=== PATIENT | female | born 1995 | race Caucasian/White ===

== ENCOUNTER 2016-05-05 21:50 | Emergency (ER) | payer OTHER ==
[2016-05-05 21:59] VITALS: BP 125/71; PULSE 90; BMI 23.4
--- NOTE | 2016-05-05 22:40 | PDOC ---
History of Present Illness - General Chief Complaint: Back Pain Stated Complaint: BACK PAIN Time Seen by Provider: 05/05/16 22:10 History Source: Patient Exam Limitations: No Limitations - History of Present Illness Initial Comments: 05/05/16 23:36 Chief complaint: Lower back pain. 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 No dysuria, incontinence, numbness or weakness or saddle anesthesia. No fever. GENERAL/CONSTITUTIONAL: No fever, weakness. dizziness HEAD, EYES, EARS, NOSE AND THROAT: No change in vision. No ear pain or discharge. No sore throat. CARDIOVASCULAR: No chest pain RESPIRATORY: No shortness of breath or cough GASTROINTESTINAL: No pain, nausea, vomiting, diarrhea or constipation GENITOURINARY: No dysuria MUSCULOSKELETAL: No neck or back pain SKIN: No rash NEUROLOGIC: No headache, vertigo, loss of consciousness, or loss of sensation. GENERAL: The patient is awake, alert, and fully oriented, in no acute distress. HEAD: Normal with no signs of trauma. EYES: Pupils equal, round and reactive to light, sclera anicteric, conjunctiva clear. ENT: pharynx: no erythema, no exudate, uvula midline NECK: supple CHEST: clear, nontender, rr ABD: soft, nontender Back with tenderness across the lower back, no CVAT Pain with bending or moving EXTREMITIES: Normal range of motion, no edema. Neurovascular intact, strength 5 out of 5 upper and lower extremities bilaterally NEUROLOGICAL: Normal speech, normal gait. SKIN: Warm, Dry Past History - Past Medical History Allergies/Adverse Reactions: Allergies Allergy/AdvReac Type Severity Reaction Status Date / Time No Known Allergies Allergy Verified 05/05/16 21:56 Home Medications: Ambulatory Orders Sulfamethoxazole/Trimethoprim [Bactrim Ds Tablet] 1 each PO BID #5 tablet Other medical history: denies - Psycho/Social/Smoking Cessation Hx Suicidal Ideation: No Smoking History: Unknown if ever smoked *Physical Exam - Vital Signs Last Vital Signs Temp Pulse Resp BP Pulse Ox 90 18 125/71 99 05/05/16 21:57 05/05/16 21:57 05/05/16 21:57 05/05/16 21:57 Medical Decision Making - Medical Decision Making 05/05/16 23:38 Patient with what appears to be 4 days of worsening lower back, musculoskeletal pain, we'll check for and check a UA for infection although no dysuria test is negative, UA shows 2+ leuks, small amount of white cells, will treat. Patient was given Toradol for pain, will reassess 05/05/16 23:45 pt is pain free *DC/Admit/Observation/Transfer Diagnosis at time of Disposition: Back pain Qualifiers: Back pain location: low back pain Chronicity: unspecified Back pain laterality : unspecified Sciatica presence: without sciatica Qualified Code(s): M54.5 - Low back pain UTI (urinary tract infection) Qualifiers: Urinary tract infection type: acute cystitis Hematuria presence: without hematuria Qualified Code(s): N30.00 - Acute cystitis without hematuria - Discharge Dispostion Disposition: HOME Condition at time of disposition: Stable Admit: No - Prescriptions Prescriptions: Sulfamethoxazole/Trimethoprim [Bactrim Ds Tablet] 1 each PO BID #5 tablet - Patient Instructions Printed Discharge Instructions: Low Back Pain, DI for Urinary Tract Infection ( UTI) Additional Instructions: Take the Bactrim one tablet every 12 hours starting tomorrow morning You can take Motrin 600 mg every 6 hours for the pain Return to the ER if fever, vomiting or getting sicker Otherwise follow-up with your doctor this week
[2016-05-05 22:49] LABS: URINE APPEARANCE CLEAR; URINE BILIRUBIN NEGATIVE (NEGATIVE); URINE BLOOD NEGATIVE (NEGATIVE); URINE COLOR LTYELLOW; URINE GLUCOSE (UA) NEGATIVE (NEGATIVE); URINE KETONE NEGATIVE (NEGATIVE); URINE NITRITE NEGATIVE (NEGATIVE); URINE PROTEIN NEGATIVE (NEGATIVE); URINE UROBILINOGEN NEGATIVE E.U./dl (0.2-1.0)
[2016-05-05] MEDS ORDERED: KETOROLAC TROMETHAMINE 60 MG/2 ML VIAL IM ONE (22:57)
[2016-05-05] MEDS ORDERED: KETOROLAC TROMETHAMINE 60 MG/2 ML VIAL ONE (22:59)
[2016-05-05 23:07] LABS: URINE BACTERIA RARE /hpf (NONE SEEN); URINE LEUK ESTERASE 2+ (NEGATIVE); URINE MUCUS RARE; URINE RBC 2 /hpf (0-3); URINE WBC 12 /hpf (3-5)
[2016-05-05 23:40] VITALS: TEMP 98.8
[2016-05-05] MEDS ORDERED: SULFAMETHOXAZOLE/TRIMETHOPRIM 800MG/160MG D.S. TABLET PO ONE (23:43)
[2016-05-05] MEDS ORDERED: SULFAMETHOXAZOLE/TRIMETHOPRIM 800MG/160MG D.S. TABLET ONE (23:47)
== END 2016-05-05 23:55 | disposition home or self-care (01) ==
LOC: JERFT 21:50
PROC: 3E0233Z Introduction of Anti-inflammatory into Muscle, Percutaneous Approach (ICD-10-PCS; principal; 2016-05-05)
DX: N30.00 Acute cystitis without hematuria (principal); M54.5 Low back pain
CPT/HCPCS: 81003; 81015; 84703; 87086; 87186; 96372; 99281-25

== ENCOUNTER 2019-12-19 17:11 | Emergency (ER) | payer OTHER ==
--- NOTE | 2019-12-19 17:15 | PDOC ---
Rapid Medical Evaluation Time Seen by Provider: 12/19/19 17:14 Medical Evaluation: Allergies Allergy/AdvReac Type Severity Reaction Status Date / Time No Known Allergies Allergy Verified 05/05/16 21:56 12/19/19 17:14 24 year old female s/p panic attack now refusing to speak accompanied by sister who states they were in the car when her sister began to hyper ventilate PE: Hyperventilating CTA RRR Plan Differed to ED provider
[2019-12-19 17:23] VITALS: TEMP 98.1; BMI 31.2
--- OUTSIDE RECORDS SUMMARY | 2019-12-19 17:41 | XMS ---
:1995 Author Organization [facility] Support Name Relationship Address Phone [employer] [place] [address] GARMENTO MOTHER [address] [place] [address] SHOSHANA'S Unavailable [address] [place] [address] GARMENIA MOTHER [address] [place] [address] DELVIN AUNT [address] [facility] [address] garmenia Unavailable Unavailable Unavailable Re-disclosure Warning The records that you are about to access may contain information from federally- assisted alcohol or drug abuse programs. If such information is present, then the following federally mandated warning applies: This information has been disclosed to you from records protected by federal confidentiality rules (42 CFR part 2). The federal rules prohibit you from making any further disclosure of this information unless further disclosure is expressly permitted by the written consent of the person to whom it pertains or as otherwise permitted by 42 CFR part 2. A general authorization for the release of medical or other information is NOT sufficient for this purpose. The Federal rules restrict any use of the information to criminally investigate or prosecute any alcohol or drug abuse patient.The records that you are about to access may contain highly sensitive health information, the redisclosure of which is protected by Article 27-F of the [facility] Public Health law. If you continue you may haveaccess to information: Regarding HIV / AIDS; Provided by facilities licensed or operated by the [facility] Office of Mental Health; or Provided by the [facility] Office for People With Developmental Disabilities. If such information is present, then the following [facility] mandated warning applies: This information has been disclosed to you from confidential records which are protected by state law. State law prohibits you from making any further disclosure of this information without the specific written consent of the person to whom it pertains, or as otherwise permitted by law. Any unauthorized further disclosure in violation of state law may result in a fine or skilled nursing sentence or both. A general authorization for the release of medical or other information is NOT sufficient authorization for further disclosure. Encounters Encounter Providers Location Date Indications Data Source(s ) Outpatient [facility] 11/29/2018 eCW3 ([facility] 12:00:00 AM Health Care) EDT - 11/29/2018 12:00:00 AM EDT Medications Medication Brand Start Product Dose Route Administrative Pharmacy [facility] Indications Reaction Description Data Name Date Form Instructions Instructions Source(s) medroxyprog DEPO-P 05/17/ suspend DEPO-P ROVERA eCW3 esterone ROVERA 2019 ed 150 mg/ml ([place] son acetate 150 150 12:00: [place] MG/ML mg/ml 00 AM Health Injectable EDT Care) Suspension [Depo-Prove ra] DEPO-PUBLIC POLICY COORDINATOR A 150 mg/ml medroxyprog DEPO-P 05/15/ suspend DEPO-P ROVERA eCW3 esterone ROVERA 2019 ed 150 mg/ml ([facility] son acetate 150 150 12:00: [place] MG/ML mg/ml 00 AM Health Injectable EDT Care) Suspension [Depo-Prove ra] DEPO-PUBLIC POLICY COORDINATOR A 150 mg/ml medroxyprog DEPO-P 02/14/ suspend DEPO-P ROVERA eCW3 esterone ROVERA 2018 ed 150 mg/ml ([facility] son acetate 150 150 12:00: [place] MG/ML mg/ml 00 AM Health Injectable EST Care) Suspension [Depo-Prove ra] DEPO-PUBLIC POLICY COORDINATOR A 150 mg/ml Insurance Providers Payer name Policy type Policy ID Covered Covered libertarian's Policy P kya / Coverage libertarian ID relationship to Garcia Inf ormation type garcia AFFINITY [id number] SP [id number] ESSENTIAL PLAN 3 4 Problems, Conditions, and Diagnoses Code Display Name Description Problem Type Effective Dates Data Source(s) U07.1 COVID-19 virus COVID-19 virus Problem 07/04/2019 eCW3 ( [place] detected detected 12:00:00 AM [facility]) Surgeries/Procedures Procedure Description Date Indications Data Source(s) INJ DEPOPROVERA 150 mg 11/29/2018 eCW3 ([place] 12:00:00 AM [facility]) Results ID Date Data Source [id number] 07/18/2019 12:00:00 AM EDT [facility] Name Value Range Interpretation Code Description Data Mel rce(s) Supporting Document(s ) 2018-nCoV [facility] RNA XXX JONY+probe- Imp This lab was ordered by [facility] and reported by [employer] ID Date Data Source [id number] 07/01/2019 12:00:00 AM EDT [facility] Name Value Range Interpretation Code Description Data Mel rce(s) Supporting Document(s ) nCoV [facility] RNA XXX JONY+probe- Imp This lab was ordered by [facility] and reported by [employer] Procedure Social History Code Duration Value Status Description Data Source(s ) Smoking 09/05/2019 12:00:00 Never Smoker completed Never Smoker e CW3 ([facility]) Smoking 07/19/2019 12:00:00 Never Smoker completed Never Smoker e CW3 ([facility]) Smoking 11/29/2018 12:00:00 Never Smoker completed Never Smoker e CW3 ([facility]) Vital Signs ID Date Data Source UNK Name Value Range Interpretation Code Description Data Source(s) Diastolic blood 72 mm[Hg] 72 mm[Hg] eCW3 ([facility]) Systolic blood 109 mm[Hg] 109 mm[Hg] eCW3 ([facility]) Body temperature 98.2 [degF] 98.2 [degF] eCW3 ( [facility]) Heart rate 20 /min 20 /min eCW3 ([facility]) Body mass index 29.82 kg/m2 29.82 kg/m2 eCW3 ([facility] (BMI) [Ratio] [facility]) Body weight 167 [lb_av] 167 [lb_av] eCW3 ([facility]) Body height 62.75 [in_i] 62.75 [in_i] eCW3 ([facility])
--- NOTE | 2019-12-19 20:16 | PDOC ---
History of Present Illness - General Chief Complaint: Chest Pain Stated Complaint: ANXIETY Time Seen by Provider: 12/19/19 17:14 History Source: Patient - History of Present Illness Initial Comments: 12/19/19 23:32 24-year-old female complaining of midsternal chest pain and shortness of breath for the last 2 weeks. It is worse with activity patient reports that she has had similar episode when she was in [facility] where she was given "pump"no further testing was done at that time. Patient is currently on OCP "Depo shot" Denies fever/chills, nausea, vomiting, abdominal pain, diarrhea, headache. This encounter was done with [employer] educational sign language interpreter 12/19/19 23:34 Denies Covid exposure or recent travel. Past History - Medical History Allergies/Adverse Reactions: Allergies Allergy/AdvReac Type Severity Reaction Status Date / Time No Known Allergies Allergy Verified 12/19/19 17:17 Home Medications: Ambulatory Orders Sulfamethoxazole/Trimethoprim [Bactrim Ds Tablet] 1 each PO BID #5 tablet 05/05/16 Albuterol Sulfate Inhaler - [Ventolin HFA Inhaler -] 2 inh PO Q4H PRN #1 inh 12/20/19 Cephalexin Monohydrate [Keflex -] 500 mg PO BID #20 capsule 12/20/19 COPD: No - Reproductive History Is Patient Now?: No - Psycho-Social/Smoking History Smoking History: Never smoked Have you smoked in the past 12 months: No - Substance Abuse Hx (Audit-C & DAST Scrn) How often the patient has a drink containing alcohol: Never Score: In Men: 4 or > Positive; In Women: 3 or > Positive: 0 Screen Result (Pos requires Nsg. Audit-10AR): Negative In the last yr the pt used illegal drug/Rx for NonMed reason: No Score: Yes response is considered Positive: 0 Screen Result (Positive result requires Nsg. DAST-10): Negative Review of Systems - Review of Systems Able to Perform ROS?: Yes Is the patient limited Serbian proficient: No Constitutional: No: Symptoms Reported, See HPI, Chills, Diaphoresis, Fever, Loss of Appetite, Malaise, Night Sweats, Weakness, Weight Stable, Unintentional Wgt. Loss, Unexplained wgt Loss, Other Respiratory: Yes: SOB with Exertion Cardiac (ROS): Yes: Chest Pain ABD/GI: No: Symptoms Reported, See HPI, Abdominal Distended, Abd. Pain w/ defecation, Blood Streaked Bowels, Constipated, Diarrhea, Difficulty Swallowing, Nausea, Poor Appetite, Poor Fluid Intake, Rectal Bleeding, Vomiting, Indigestion, Abdominal cramping, Tarry Stools, Other *Physical Exam - Vital Signs Last Vital Signs Temp Pulse Resp BP Pulse Ox 98.1 F 84 18 120/74 98 12/19/19 17:17 12/20/19 01:12 12/19/19 17:17 12/20/19 01:12 12/20/19 01:12 - Physical Exam General Appearance: Yes: Appropriately Dressed Respiratory/Chest: positive: Lungs Clear, Normal Breath Sounds Cardiovascular: positive: Regular Rhythm, Regular Rate. negative: Tachycardia Gastrointestinal/Abdominal: positive: Normal Bowel Sounds, Soft. negative: Tender Musculoskeletal: negative: CVA Tenderness Extremity: positive: Normal Capillary Refill, Normal Inspection, Normal Range of Motion Integumentary: positive: Normal Color, Dry, Warm Neurologic: positive: Fully Oriented, Alert, Normal Mood/Affect ED Treatment Course - LABORATORY CBC & Chemistry Diagram: 12/19/19 21:30 12/19/19 21:30 - ADDITIONAL ORDERS Additional order review: Laboratory Results 12/19/19 12/19/19 12/19/19 22:31 22:00 21:30 D-Dimer 885 H Sodium 137 Potassium 4.2 Chloride 106 Carbon Dioxide 25 Anion Gap 7 L BUN 9.8 Creatinine 0.6 Est GFR (CKD-EPI)AfAm 146.83 Est GFR (CKD-EPI)NonAf 126.68 Random Glucose 77 Calcium 9.4 Total Bilirubin 0.3 AST 97 H ALT 150 H Alkaline Phosphatase 100 Troponin I < 0.02 Total Protein 8.7 H Albumin 4.4 Urine Color Yellow Urine Appearance Turbid Urine pH 7.0 Ur Specific [place] 1.019 Urine Protein Negative Urine Glucose (UA) Negative Urine Ketones Negative Urine Blood Negative Urine Nitrite Positive H Urine Bilirubin Negative Urine Urobilinogen 0.2 Ur Leukocyte Esterase 2+ H Urine WBC (Auto) 354 Urine RBC (Auto) 13 Urine Casts (Auto) 18 U Pathogenic Cast Auto U Epithel Cells (Auto) >36 Urine Bacteria (Auto) >9,000 Urine HCG, Qual Negative 12/19/19 21:30 RBC 4.50 MCV 89.9 MCHC 34.2 RDW 14.3 MPV 9.0 Neutrophils % 55.9 Lymphocytes % 35.6 D Monocytes % 5.7 Eosinophils % 1.7 Basophils % 1.1 - RADIOLOGY Radiology Studies Ordered: Category Date Time Status CHEST CTA [CT] Stat CT Scan 12/19/19 22:16 Taken CHEST PA & LAT [RAD] Stat Radiology 12/19/19 20:16 Taken - Medications Given in the ED: ED Medications Discontinued Medications Generic Name Dose Route Start Last Admin Trade Name Tisha PRN Reason Stop Dose Admin Ketorolac Tromethamine 30 mg 12/20/19 00:42 12/20/19 00:55 Toradol Injection - IVPUSH 12/20/19 00:43 30 mg ONCE ONE Administration Medical Decision Making - Medical Decision Making 12/19/19 23:35 A: chest pain; uti P: labs ekg chest xray UA: + nitrite leuks + d-dimer elevated 12/20/19 00:42 CTA chest : There is no PE or dissection. Heart size is normal. The trachea and bronchi are patent. There is no pleural or pericardial effusion. The lungs are clear. No fractures identified. The upper abdominal structures are normal. Discharge - Discharge Information Problems reviewed: Yes Clinical Impression/Diagnosis: SOB (shortness of breath) on exertion Chest pain Qualifiers: Chest pain type: chest pain on breathing Qualified Code(s): R07.1 - Chest pain on breathing UTI (urinary tract infection) Qualifiers: Urinary tract infection type: acute cystitis Hematuria presence: without hematuria Qualified Code(s): N30.00 - Acute cystitis without hematuria Condition: Stable Disposition: HOME - Additional Discharge Information Prescriptions: Cephalexin Monohydrate [Keflex -] 500 mg PO BID #20 capsule Albuterol Sulfate Inhaler - [Ventolin HFA Inhaler -] 2 inh PO Q4H PRN #1 inh PRN Reason: Shortness Of Breath - Follow up/Referral Referrals: Aleida Lowe CNM [Primary Care Provider] - - Patient Discharge Instructions Patient Printed Discharge Instructions: DI for Chest Pain Additional Instructions: Please follow-up with your primary care doctor. Return to the emergency room for any worsening symptoms - Post Discharge Activity Work/Back to School Note: Back to Work
[2019-12-19 21:52] LABS: BASO % 1.1 % (0-2.0); EOS % 1.7 % (0-4.5); HEMATOCRIT 40.4 % (32.4-45.2); HEMOGLOBIN 13.8 GM/dL (10.7-15.3); LYMPH % 35.6 % (8-40); MCH 30.8 pg (25.7-33.7); MCHC 34.2 g/dl (32.0-36.0); MEAN CELL VOLUME 89.9 fl (80-96); MONO % 5.7 % (3.8-10.2); NEUT % 55.9 % (42.8-82.8); PLATELET COUNT 408 K/MM3 (134-434); RDW 14.3 % (11.6-15.6); WHITE BLOOD COUNT 8.5 K/mm3 (4.0-10.0)
[2019-12-19 22:38] LABS: ALBUMIN 4.4 g/dl (3.4-5.0); ALK PHOS 100 U/L (45-117); ANION GAP 7 MMOL/L (8-16); BILIRUBIN,TOTAL 0.3 mg/dL (0.2-1); BLOOD UREA NITROGEN 9.8 mg/dL (7-18); CALCIUM 9.4 mg/dL (8.5-10.1); CHLORIDE 106 mmol/L (98-107); CO2 25 mmol/L (21-32); CREATININE 0.6 mg/dL (0.55-1.3); GLUCOSE,RANDOM 77 mg/dL (74-106); POTASSIUM 4.2 mmol/L (3.5-5.1); SGOT/AST 97 U/L (15-37); SGPT/ALT 150 U/L (13-61); SODIUM 137 mmol/L (136-145); TOT PROT 8.7 g/dl (6.4-8.2)
[2019-12-19 22:43] LABS: EPI CELLS >36 /uL (0-25.1); HYALINE CASTS 18 /uL (0-3.1); URINE APPEARANCE TURBID; URINE BACTERIA >9,000 /uL (0-1359); URINE BILIRUBIN NEGATIVE (NEGATIVE); URINE COLOR YELLOW; URINE GLUCOSE (UA) NEGATIVE (NEGATIVE); URINE KETONE NEGATIVE (NEGATIVE); URINE LEUK ESTERASE 2+ (NEGATIVE); URINE NITRITE POSITIVE (NEGATIVE); URINE PROTEIN NEGATIVE (NEGATIVE); URINE RBC 13 /uL (0-23.9); URINE UROBILINOGEN 0.2 mg/dL (0.2-1.0); URINE WBC 354 /uL (0-25.8)
[2019-12-19 22:44] LABS: HCG,QUALITATIVE URINE Negative
[2019-12-20] MEDS ORDERED: KETOROLAC TROMETHAMINE 30 MG/1 ML VIAL IVPUSH ONE (00:42)
[2019-12-20] MEDS ORDERED: KETOROLAC TROMETHAMINE 30 MG/1 ML VIAL ONE (00:45)
[2019-12-20 01:13] VITALS: BP 120/74; PULSE 84
--- NOTE | 2019-12-20 10:03 | EKG ---
Test Reason : Blood Pressure : / mmHG Vent. Rate : 082 BPM Atrial Rate : 082 BPM P-R Int : 156 ms QRS Dur : 076 ms QT Int : 374 ms P-R-T Axes : 033 039 036 degrees QTc Int : 436 ms NORMAL SINUS RHYTHM NORMAL ECG NO PREVIOUS ECGS AVAILABLE Confirmed by MD Wale, Delonte ([id number]) on 12/20/2019 10:03:42 AM Referred By: Confirmed By:Delonte Echevarria MD
== END 2019-12-20 00:56 | disposition home or self-care (01) ==
LOC: JER 17:11
PROC: 3E0333Z Introduction of Anti-inflammatory into Peripheral Vein, Percutaneous Approach (ICD-10-PCS; principal; 2019-12-19)
DX: R06.02 Shortness of breath (principal); R07.1 Chest pain on breathing
CPT/HCPCS: 36415; 71046-TC-FY; 71275-TC; 80053; 81003; 84484; 84703; 85025; 85379; 93005; 93010; 99285-25; Q9967